=== PATIENT | male | born 1935 | race Caucasian/White ===

== ENCOUNTER 2019-03-31 07:10 | Day surgery (SDC) | payer MEDICARE, MEDICAID ==
[2019-03-29 13:23] LABS: BASOPHILS # (AUTO) 0.1 X10'3 (0-0.2); BASOPHILS % (AUTO) 1.3 % (0-1); EOSINOPHILS # (AUTO) 0.5 X10'3 (0-0.9); EOSINOPHILS % (AUTO) 7.7 % (0-6); HEMATOCRIT 44.2 % (42.0-52.0); HEMOGLOBIN 15.1 g/dl (14.0-17.9); LYMPHOCYTES # (AUTO) 1.8 X10'3 (1.1-4.8); LYMPHOCYTES % (AUTO) 25.8 % (21-51); MEAN CORPUSCULAR HEMOGLOBIN 32.9 PG (27.0-31.0); MEAN CORPUSCULAR HGB CONC 34.1 g/dL (33.0-36.5); MEAN CORPUSCULAR VOLUME 96.3 FL (78-98); MEAN PLATELET VOLUME 9.2 FL (7.4-10.4); MONOCYTES # (AUTO) 0.4 X10'3 (0-0.9); MONOCYTES % (AUTO) 6.1 % (2-12); NEUTROPHILS % (AUTO) 59.1 % (42-75); PLATELET COUNT 163 X10'3 (140-440); RED BLOOD COUNT 4.59 X10'6 (4.70-6.10); RED CELL DISTRIBUTION WIDTH 14.5 % (11.5-14.5); WHITE BLOOD COUNT 6.8 X10'3 (4.5-11.0)
[2019-03-29 13:39] LABS: ALANINE AMINOTRANSFERASE 19 U/L (12-78); ALBUMIN 3.3 G/DL (3.4-5.0); ALBUMIN/GLOBULIN RATIO 0.9 (1.1-1.5); ALKALINE PHOSPHATASE 145 IU/L (46-116); ANION GAP 4 (8-16); ASPARTATE AMINO TRANSFERASE 16 U/L (10-37); BILIRUBIN,TOTAL 0.8 MG/DL (0.1-1.0); BLOOD UREA NITROGEN 14 MG/DL (7-18); BUN/CREATININE RATIO 10.4 (5.4-32.0); CALCIUM 8.5 MG/DL (8.5-10.1); CHLORIDE 102 MMOL/L (99-107); CREATININE 1.35 MG/DL (0.60-1.10); GLUCOSE 156 MG/DL (70-104); POTASSIUM 3.7 MMOL/L (3.5-5.1); SODIUM 143 MMOL/L (135-145); TOTAL CARBON DIOXIDE 37.5 MMOL/L (24-32); TOTAL PROTEIN 6.8 G/DL (6.4-8.2); eGFR 50 ML/MIN
[2019-03-29 14:05] LABS: PARTIAL THROMBOPLASTIN TIME 30 SECONDS (22-32)
[2019-03-31] VITALS (12 sets, daily range): BP systolic 126–187; BP diastolic 68–113
[~2019-03-31] VITALS: Ht 180.3 cm; Wt 114.0 kg
[2019-03-31] MEDS ORDERED: nitroGLYCERIN 0.4mg SUBLingual tab SL PRN (07:30)
[2019-03-31] MEDS ORDERED: diphenhydrAMINE 25mg capsule PO PRN (07:30)
[2019-03-31] MEDS ORDERED: normal saline 1,000 ML IV SCH (07:30)
[2019-03-31] MEDS ORDERED: LORazepam 0.5 MG tablet PO PRN (07:30)
[2019-03-31] MEDS ORDERED: APIX5TAB3 PO (08:04)
[2019-03-31] MEDS ORDERED: OXYGEN NASALCANN (08:04)
[2019-03-31] MEDS ORDERED: METO100T14 PO (08:04)
[2019-03-31] MEDS ORDERED: HYDR25TA4 PO (08:04)
[2019-03-31] MEDS ORDERED: FINA5TAB11 PO (08:04)
[2019-03-31] MEDS ORDERED: ASPI-1053 PO (08:04)
[2019-03-31] MEDS ORDERED: ATOR40TA71 PO (08:04)
[2019-03-31] MEDS ORDERED: FLO0.4C PO (08:04)
[2019-03-31] MEDS ORDERED: fentaNYL/PF 50MCG/1 ML 2ML syringe ONE (10:00)
[2019-03-31] MEDS ORDERED: midazolam 2 mg/2 ml injection ONE (10:01)
[2019-03-31] MEDS ORDERED: iohexol 350 MG/ML 50ML vial IV ONE ×2 (10:01→10:47)
[2019-03-31] MEDS ORDERED: LIDOcaine 1% (10mg/ml)w/preservative injection 20ml MDV ONE (10:01)
[2019-03-31] MEDS ORDERED: iohexol 350MG/ML 100ml bottle IV ONE (10:01)
[2019-03-31] MEDS ORDERED: ondansetron/PF 4mg/2ml inj IV PRN (11:35)
[2019-03-31] MEDS ORDERED: HYDROcodone/acetaminophen 10/325mg tab PO PRN (11:35)
[2019-03-31] MEDS ORDERED: HYDROcodone/acetaminophen 5mg/325mg tablet PO PRN (11:35)
[2019-03-31] MEDS ORDERED: proCHLORperazine 10 MG/2 ml inj IV PRN (11:35)
[2019-03-31] MEDS ORDERED: OXAZEpam 15mg capsule PO PRN (11:35)
--- NOTE | 2019-03-31 12:00 | NUR ---
pt ate 100% of breakfast tray, 250ml oral fluid intake.
--- NOTE | 2019-03-31 12:15 | NUR ---
emptied Ho, 350 ml, yellow clear
--- NOTE | 2019-03-31 15:18 | NUR ---
Spoke with pt's son, Killian WillisBrigid to give discharge time. He states he will be here at 1730. [place] time 1800.
== END 2019-03-31 18:00 | disposition home or self-care (01) ==
LOC: SSTAY O 07:10
PROVIDERS: ATTEND Internal Medicine Cardiovascular Disease
DX: Z01.818 Encounter for other preprocedural examination (principal); I25.10 Atherosclerotic heart disease of native coronary artery without angina pectoris; I25.82 Chronic total occlusion of coronary artery; I25.2 Old myocardial infarction; I48.20 Chronic atrial fibrillation, unspecified; J44.9 Chronic obstructive pulmonary disease, unspecified; E66.9 Obesity, unspecified; Z68.35 Body mass index [BMI] 35.0-35.9, adult; I70.203 Unspecified atherosclerosis of native arteries of extremities, bilateral legs; Z86.73 Personal history of transient ischemic attack (TIA), and cerebral infarction without residual deficits; Z87.891 Personal history of nicotine dependence
CPT/HCPCS: 36415; 71046; 75710; 80053; 85025; 85610; 85730; 93005; 93458; 99152; 99153; C1769; J1644; J2001; J2250; J2405; J3010; J7030; Q9967; 75625; A4620; A6258; C1760